=== PATIENT | female | born 1955 | race Caucasian/White ===

== ENCOUNTER 2023-12-10 10:32 | Inpatient (IN) ==
[~2023-12-10 10:32] MED LIST: cefTRIAXone 2 gm/50 mL D5W 2 GM/50 ML BAG IV SCH
[2023-12-10 11:08] LABS: ABS Basophils 0.1 10^3/uL (0.0-0.1); ABS Lymphocytes 0.2 10^3/uL (1.0-4.8); ABS Monocytes 1.2 10^3/uL (0.0-0.9); ABS Neutrophils 19.1 10^3/uL (1.5-7.6); ABS Nucleated RBC 0.01 10^3/ul; Hematocrit 29.2 % (35-45); Hemoglobin 9.9 g/dL (11.5-14.3); Lymphocyte % 0.7 %; Mean Corpuscular Hemoglobin 31.6 pg (27-33); Mean Corpuscular Hgb Conc 33.8 g/dL (31-36); Mean Corpuscular Volume 93.4 fL (80-97); Mean Platelet Volume 7.4 fL (7.5-11.2); Platelet Count 323 10^3/uL (150-450); Red Blood Count 3.13 10^6/uL (3.63-4.92); Red Cell Distribution Width 17.9 % (12-17); White Blood Count 20.6 10^3/uL (3.8-11.8)
[2023-12-10 11:12] LABS: Activated Partial Thrombo Time 28.7 seconds (26.0-38.0); INR 1.6 (0.83-1.13)
[2023-12-10 11:24] LABS: Albumin 2.6 g/dL (3.2-5.2); Albumin/Globulin Ratio 0.7 (1-3); Calcium 8.7 mg/dL (8.6-10.3); Creatinine, Serum 0.83 mg/dL (0.51-0.95); Direct Bilirubin 3.3 mg/dL (0.03-0.18); Indirect Bilirubin 3.2 mg/dL (0.3-1.0); Potassium 3.9 mmol/L (3.5-5.0); Total Bilirubin 6.5 mg/dL (0.2-1.0); Total Protein 6.6 g/dL (6.4-8.9); eGFR CKD-EPI 77.2 (>60)
[2023-12-10] MEDS ORDERED: Morphine 2 MG/ML SYRINGE IV PRN (13:57)
[2023-12-10] MEDS: NS 0.9% 1000 ml BAG 1,000 ML IV SCH (16:56)
[2023-12-10] MEDS: Pancrelipase 5,000 units CAP PO SCH (17:44)
[2023-12-11 06:06] LABS: ABS Lymphocytes 0.2 10^3/uL (1.0-4.8); ABS Monocytes 0.5 10^3/uL (0.0-0.9); ABS Neutrophils 7.5 10^3/uL (1.5-7.6); Eosinophil % 0.6 %; Hematocrit 28.3 % (35-45); Hemoglobin 9.5 g/dL (11.5-14.3); Lymphocyte % 1.8 %; Mean Corpuscular Hemoglobin 31.4 pg (27-33); Mean Corpuscular Hgb Conc 33.7 g/dL (31-36); Mean Corpuscular Volume 93.2 fL (80-97); Mean Platelet Volume 6.9 fL (7.5-11.2); Platelet Count 282 10^3/uL (150-450); Red Blood Count 3.03 10^6/uL (3.63-4.92); Red Cell Distribution Width 18.1 % (12-17); White Blood Count 8.3 10^3/uL (3.8-11.8)
[2023-12-11 06:21] VITALS: BP 97/57
[2023-12-11 07:08] LABS: Albumin/Globulin Ratio 0.7 (1-3); Calcium 8.1 mg/dL (8.6-10.3); Creatinine, Serum 0.61 mg/dL (0.51-0.95); Direct Bilirubin 1.7 mg/dL (0.03-0.18); Magnesium 1.8 mg/dL (1.9-2.7); Potassium 4.1 mmol/L (3.5-5.0); Total Bilirubin 2.9 mg/dL (0.2-1.0); eGFR CKD-EPI 97.9 (>60)
[2023-12-11] MEDS: cefTRIAXone 2 gm/50 mL D5W 2 GM/50 ML BAG IV SCH (09:21)
[2023-12-11] MEDS ORDERED: Enoxaparin 40 MG/0.4 ML SYR SUBCUT SCH (17:00)
== END 2023-12-11 10:30 | disposition home or self-care (01) | DRG 445 ==
LOC: CHOA 10:32 → SSU 13:46
PROVIDERS: ADMIT Internal Medicine Hematology & Oncology; ATTEND Internal Medicine Hematology & Oncology

== ENCOUNTER 2023-12-13 08:36 | Inpatient (IN) ==
[2023-12-13 10:12] LABS: ABS Basophils 0.1 10^3/uL (0.0-0.1); ABS Lymphocytes 0.3 10^3/uL (1.0-4.8); ABS Monocytes 0.6 10^3/uL (0.0-0.9); ABS Neutrophils 6.5 10^3/uL (1.5-7.6); Eosinophil % 0.4 %; Hematocrit 35.5 % (35-45); Hemoglobin 11.8 g/dL (11.5-14.3); Lymphocyte % 4.1 %; Mean Corpuscular Hemoglobin 31.3 pg (27-33); Mean Corpuscular Hgb Conc 33.4 g/dL (31-36); Mean Corpuscular Volume 93.8 fL (80-97); Mean Platelet Volume 7.6 fL (7.5-11.2); Platelet Count 407 10^3/uL (150-450); Red Blood Count 3.78 10^6/uL (3.63-4.92); White Blood Count 7.6 10^3/uL (3.8-11.8)
[2023-12-13 11:00] LABS: Albumin 2.5 g/dL (3.2-5.2); Albumin/Globulin Ratio 0.6 (1-3); Calcium 8.4 mg/dL (8.6-10.3); Creatinine, Serum 0.56 mg/dL (0.51-0.95); Globulin 4.1 g/dL (2-4); Potassium 3.8 mmol/L (3.5-5.0); Total Bilirubin 2.6 mg/dL (0.2-1.0); Total Protein 6.6 g/dL (6.4-8.9)
[2023-12-13] MEDS: methylPREDNISolone SOD SUCC 40 mg/ml 1 ml VIAL IV ONE (11:09)
[2023-12-13] MEDS: Vancomycin 1,000 MG in NS 0.9% 250 ml 250 ML IVPB ONE (15:43)
[2023-12-13] MEDS ORDERED: Vancomycin per Pharmacy 1 EA NOTE FOLLOW UP SCH (18:00)
[2023-12-13] MEDS: cefTRIAXone 1 gm/50 mL D5W 1 GM/50 ML BAG IV ONE (18:40)
[2023-12-13] MEDS: Pancrelipase 5,000 units CAP PO SCH (19:38)
[2023-12-13] MEDS: Lactated Ringers 1000 ml BAG 1,000 ML IV ONE (19:38)
[2023-12-13] MEDS: Enoxaparin 40 MG/0.4 ML SYR SUBCUT SCH (19:38)
[2023-12-13] MEDS: cefTRIAXone 2 gm/50 mL D5W 2 GM/50 ML BAG IV SCH (19:38)
[2023-12-14 06:58] LABS: Hematocrit 27.8 % (35-45); Hemoglobin 9.6 g/dL (11.5-14.3); Mean Corpuscular Hgb Conc 34.5 g/dL (31-36); Mean Corpuscular Volume 92.8 fL (80-97); Mean Platelet Volume 7.9 fL (7.5-11.2); Platelet Count 314 10^3/uL (150-450); Red Blood Count 2.99 10^6/uL (3.63-4.92); Red Cell Distribution Width 17.6 % (12-17); White Blood Count 7.6 10^3/uL (3.8-11.8)
[2023-12-14 07:17] LABS: Albumin 2.1 g/dL (3.2-5.2); Albumin/Globulin Ratio 0.7 (1-3); Calcium 7.8 mg/dL (8.6-10.3); Creatinine, Serum 0.55 mg/dL (0.51-0.95); Globulin 3.2 g/dL (2-4); Potassium 4.1 mmol/L (3.5-5.0); Total Bilirubin 2.1 mg/dL (0.2-1.0); Total Protein 5.3 g/dL (6.4-8.9); eGFR CKD-EPI 100.4 (>60)
[2023-12-14] MEDS ORDERED: Sulfur Hexaflouride MICROSPHR 25 MG VIAL IV ONE (11:29)
[2023-12-16 06:17] LABS: ABS Eosinophils 0.1 10^3/uL (0.0-0.5); ABS Lymphocytes 0.4 10^3/uL (1.0-4.8); ABS Monocytes 0.6 10^3/uL (0.0-0.9); ABS Neutrophils 4.7 10^3/uL (1.5-7.6); Hematocrit 31.3 % (35-45); Hemoglobin 10.7 g/dL (11.5-14.3); Lymphocyte % 7.5 %; Mean Corpuscular Hemoglobin 31.8 pg (27-33); Mean Corpuscular Hgb Conc 34.1 g/dL (31-36); Mean Corpuscular Volume 93.3 fL (80-97); Mean Platelet Volume 7.7 fL (7.5-11.2); Nucleated Red Blood Cells % 0.1 %/100WBC (0.0-0.8); Platelet Count 375 10^3/uL (150-450); Red Blood Count 3.35 10^6/uL (3.63-4.92); Red Cell Distribution Width 17.7 % (12-17); White Blood Count 5.9 10^3/uL (3.8-11.8)
[2023-12-16 06:28] LABS: Calcium 7.8 mg/dL (8.6-10.3); Creatinine, Serum 0.61 mg/dL (0.51-0.95); Potassium 3.7 mmol/L (3.5-5.0); eGFR CKD-EPI 97.9 (>60)
[2023-12-16 15:18] VITALS: BP 116/96
== END 2023-12-16 17:20 | disposition home or self-care (01) | DRG 435 ==
LOC: ED 08:36 → EDHOLD 08:36 → MEDTELE 19:47 → SUATTDRO 12-14 17:35
PROVIDERS: ADMIT Family Medicine; ATTEND Internal Medicine